=== PATIENT | male | born 1955 | race Caucasian/White ===

== ENCOUNTER → 2019-03-10 20:36 | Outpatient (CLI) | payer BC, SELFPAY ==
--- NOTE | 2019-03-10 20:41 | DI.MRI.S_ITS ---
PROCEDURE: MR KNEE RT WO CON INDICATIONS: PAIN IN RIGHT KNEE TECHNIQUE: Noncontrast sagittal PD fast spin echo and T2 fast spin echo with fat saturation, sagittal 3-D FLASH with fat saturation; coronal T1 spin echo and PD fast spin echo with fat saturation, and axial PD fast spin echo with fat saturation through the knee. COMPARISON: [facility], CR, XR KNEE ARTHRITIC SERIES BI, 02/07/2019, 12:18. FINDINGS: Image quality: Degraded by body habitus and motion artifact. Menisci: Amorphous high signal intensity within the medial meniscal body and anterior horn is present, demonstrating inferior articular surface extension. Radial tearing of the free edge of the medial meniscal body. There is linear oblique high T2 signal intensity traversing the anterior and posterior horns lateral meniscus, demonstrating inferior articular surface extension, indicating oblique tearing. Cruciate ligaments: The posterior cruciate ligament is intact. Anterior cruciate ligament is not well seen, and may be torn. Medial structures: The medial collateral ligament appears intact. Visualized portions of the pes anserinus tendons appear normal. No abnormal bursal fluid. Lateral structures: The lateral collateral ligament, long and short heads of the biceps femoris tendon appear intact. The popliteus tendon appears normal. Iliotibial band appears normal. Anterior structures: The quadriceps and patellar tendons appear intact. Mild lateral patellar subluxation. No femoral trochlear dysplasia or ventral trochlear prominence. No edema in the infrapatellar fat pad. Bones and cartilage: No bone marrow contusions or fractures. There is mild ill-defined degenerative marrow edema within the weightbearing aspects of the medial and central tibial plateau. There is severe tricompartmental periarticular osteophyte formation. There is severe diffuse articular cartilage loss overlying the weightbearing aspects of the medial femoral condyle and medial tibial plateau. Severe articular cartilage loss overlies the posterior weightbearing aspect of the lateral femoral condyle and lateral tibial plateau. Moderate articular cartilage loss overlies the central femoral trochlea. Joint space: There is a small knee joint effusion. There is a 10 mm diameter loose body within the posterior medial aspect of the knee joint. No Melvin's cyst. Normal appearing synovial plicae are incidentally noted. IMPRESSION: 1. Limited examination secondary to body habitus and motion artifact. 2. Tricompartmental osteoarthritis with associated articular cartilage loss. 3. Medial and lateral meniscal tearing. 4. Limited evaluation of the anterior cruciate ligament, possibly indicating full-thickness tearing. Dictated by: Adelita Carter M.D. on 03/13/2019 at 16:12 Approved by: Adelita Carter M.D. on 03/13/2019 at 16:18
== END ==
PROVIDERS: Visit Provider Orthopaedic Surgery
DX: M25.561 Pain in right knee (principal); S83.241A Other tear of medial meniscus, current injury, right knee, initial encounter; S83.281A Other tear of lateral meniscus, current injury, right knee, initial encounter; M17.11 Unilateral primary osteoarthritis, right knee
CPT/HCPCS: 73721